=== PATIENT | female | born 1960 | race Caucasian/White ===

== ENCOUNTER 2016-05-12 10:38 | Day surgery (SDC) | payer MEDICARE, MEDICAID ==
[~2016-05-12 10:38] MED LIST: Bupivacaine 0.5% 50 ML MDV ONE; Lidocaine 2% 20 ML MDV ONE
[2016-05-12] MEDS ORDERED: Midazolam 1 MG/ML 2 ML SDV ONE (11:10)
[2016-05-12] MEDS ORDERED: fentaNYL 100 MCG/2 ML SDV ONE (11:10)
[2016-05-12] MEDS ORDERED: Propofol 200 MG/20 ML SDV ONE (11:10)
[2016-05-12] MEDS ORDERED: Ondansetron 4 MG/2 ML SDV ONE (11:38)
[2016-05-12] MEDS ORDERED: Lactated Ringers 1,000 ML IV SCH (11:45)
[2016-05-12] MEDS ORDERED: ceFAZolin 2 GM in Premix Bag 1 BAG IV ONE (12:30)
[2016-05-12] MEDS ORDERED: ceFAZolin 2 GM in Sodium Chloride 0.9% 50 ML IV ONE (12:30)
--- NOTE | 2016-05-12 12:54 | OR ---
DATE OF PROCEDURE: 05/12/2016 ALIGNMENT TECHNICIAN: None. PREOPERATIVE DIAGNOSIS: Soft tissue mass, left foot. POSTOPERATIVE DIAGNOSIS: Soft tissue mass, left foot. PROCEDURE: Excision of soft tissue mass, left foot. ANESTHESIA: Local with IV sedation. HEMOSTASIS: Obtained with an ankle tourniquet on the left ankle at 250 mmHg. ESTIMATED BLOOD LOSS: 5 mL. MATERIALS: None. INJECTABLES: 10 mL of 1:1 mixture of Marcaine 0.5% plain and lidocaine 2% plain were injected prior to the procedure. PATHOLOGY: Soft tissue mass sent. CONDITION: Stable. INDICATIONS: Painful soft tissue mass, lateral aspect, left foot, that was unresponsive to conservative measures. PROCEDURE IN DETAIL: The patient was brought to the operating room, placed on the operating table in supine position. Following IV sedation, anesthesia was obtained with a total of 10 mL of 1:1 Mixture of lidocaine 2% plain, Marcaine 0.5% plain. The left foot was then scrubbed, prepped, and draped in the usual aseptic manner, raised to 60 degrees for hemostasis and exsanguinated. Using Esmarch bandage, tourniquet was inflated. Foot was lowered to table. Skin incision was made on the lateral aspect of the left heel. Incisions were deepened through subcutaneous tissues with care taken to identify and retract all vital neurovascular structures. The mass was found in the subcutaneous layer, it was carefully dissected out and removed. The incision was then checked to make sure there was no remnants of the mass left and none were found. Incision was flushed out with copious amounts of sterile saline and then closed with 3-0 nylon in a horizontal mattress configuration. One simple stitch was used on this incision. The incision was then dressed with Xeroform, 4x4s, Kerlix, and Coban. The incision length was 3 cm. The patient was returned to recovery room with vital signs stable and vascular status intact to both feet. The patient was told to rest and elevate the left foot and remain nonweightbearing with a knee scooter and to return to clinic for followup in [address] De La Torre. At which time, she will be re-evaluated, but go to the emergency room immediately if she has any nausea, vomiting, fever, chills, chest pain, calf pain, or difficulty breathing. Jesse De La Torre DPM /[id number]
[2016-05-12 13:10] VITALS: BP 156/93
== END 2016-05-12 13:47 | disposition home or self-care (01) ==
LOC: JP.SDS 10:38
PROVIDERS: ATTEND Podiatrist Foot & Ankle Surgery
DX: D36.7 Benign neoplasm of other specified sites (principal); I10 Essential (primary) hypertension; E11.9 Type 2 diabetes mellitus without complications; G47.33 Obstructive sleep apnea (adult) (pediatric); Z90.49 Acquired absence of other specified parts of digestive tract; Z90.710 Acquired absence of both cervix and uterus; Z88.8 Allergy status to other drugs, medicaments and biological substances; Z98.890 Other specified postprocedural states; Z79.899 Other long term (current) drug therapy; Z87.891 Personal history of nicotine dependence
CPT/HCPCS: 28043; J0690; J2250; J2405; J2704; J7050; J7120; 88305; 88342; J3010

== ENCOUNTER 2018-07-02 07:28 | Day surgery (SDC) | payer MEDICARE, MEDICAID ==
[~2018-07-02 07:28] MED LIST changes: -Bupivacaine 0.5% 50 ML MDV ONE; -Lidocaine 2% 20 ML MDV ONE; +Midazolam 1 MG/ML 2 ML SDV ONE; +Propofol 200 MG/20 ML SDV ONE; +fentaNYL 100 MCG/2 ML SDV ONE
[2018-07-02] MEDS ORDERED: Sodium Chloride 0.9% 1,000 ML IV SCH (08:00)
[2018-07-02] MEDS ORDERED: Propofol 200 MG/20 ML SDV ONE (09:23)
[2018-07-02 10:52] VITALS: BP 113/65
--- NOTE | 2018-07-02 14:00 | OR ---
DATE OF PROCEDURE: 07/02/2018 SURGEON: Royal Talamantes MD PROCEDURE: Colonoscopy. FINDINGS: Pedunculated polyp, approximately 1 cm size, in sigmoid colon, completely removed using hot snare. COMPLICATIONS: None. WEB DEVELOPMENT MANAGER: None. ANESTHESIA: MAC. PREOPERATIVE DIAGNOSIS: History of colon polyps/screening colonoscopy. POSTOPERATIVE DIAGNOSIS: History of colon polyps/screening colonoscopy. RISKS: Risks, benefits, alternatives, and limitations including, but not limited to infection, bleeding, and perforation were explained to the patient, who wished to proceed. PROCEDURE IN DETAIL: The patient was placed in left lateral decubitus position. Digital rectal exam was performed without abnormality. The scope was introduced atraumatically to the ileocecal valve. The scope was brought back through the ascending, transverse, descending colon, and retroflexed. No evidence of old or new blood. No other polyps. No masses. No colitis. No abnormalities and retroflexed. The patient tolerated the procedure well. Royal Talamantes MD /[id number]
== END 2018-07-02 10:50 | disposition home or self-care (01) ==
LOC: JP.SDS 07:28
PROVIDERS: ATTEND Surgery
DX: Z12.11 Encounter for screening for malignant neoplasm of colon (principal); D12.5 Benign neoplasm of sigmoid colon; I10 Essential (primary) hypertension; E11.9 Type 2 diabetes mellitus without complications; K21.9 Gastro-esophageal reflux disease without esophagitis; G47.33 Obstructive sleep apnea (adult) (pediatric); Z88.8 Allergy status to other drugs, medicaments and biological substances; Z86.010 Personal history of colon polyps
CPT/HCPCS: 45385; J2250; J2704; J7030; 88305; J3010

== ENCOUNTER 2021-03-21 07:50 | Day surgery (SDC) | payer MEDICAID, MEDICARE ==
[2021-03-21] MEDS ORDERED: Sodium Chloride 0.9% 10 ML Syringe FLUSH PRN (08:30)
[2021-03-21 09:41] VITALS: BP 157/86; PULSE 71
== END 2021-03-21 09:45 | disposition home or self-care (01) ==
LOC: JP.SDS 07:50
PROVIDERS: ATTEND Ophthalmology
DX: E11.36 Type 2 diabetes mellitus with diabetic cataract (principal); H25.811 Combined forms of age-related cataract, right eye; G47.33 Obstructive sleep apnea (adult) (pediatric); I10 Essential (primary) hypertension; K21.9 Gastro-esophageal reflux disease without esophagitis
CPT/HCPCS: C9803

== ENCOUNTER 2021-04-04 07:58 | Day surgery (SDC) | payer MEDICARE ==
[2021-04-04] MEDS ORDERED: Sodium Chloride 0.9% 10 ML Syringe FLUSH ONE (08:22)
[2021-04-04 09:52] VITALS: BP 138/84; PULSE 76
[2021-04-04] MEDS ORDERED: Sodium Chloride 0.9% 10 ML Syringe FLUSH SCH (10:00)
== END 2021-04-04 09:54 | disposition home or self-care (01) ==
LOC: JP.SDS 07:58
PROVIDERS: ATTEND Ophthalmology
DX: H25.812 Combined forms of age-related cataract, left eye (principal)
CPT/HCPCS: 66984; V2632